=== PATIENT | male | born 1995 | race Caucasian/White ===

== ENCOUNTER 2023-03-01 20:51 | Emergency (ER) | payer OTHER ==
[2023-03-01 20:55] VITALS: BP 160/90; PULSE 104; RESP 20; TEMP 98.7; BMI 40.6
[2023-03-01] MEDS ORDERED: SIMETHICONE 80 MG TAB.CHEW (FP) PO ONE (21:20)
[2023-03-01] MEDS ORDERED: MAG HYDROX/AL HYDROX/SIMETH -MYLANTA- ORAL SUSPENSION PO ONE (21:21)
[2023-03-01] MEDS ORDERED: ACETAMINOPHEN 500 MG TABLET (FP) PO ONE (21:21)
[2023-03-01] MEDS ORDERED: FAMOTIDINE 10 MG TABLET PO ONE (21:21)
[2023-03-01] MEDS ORDERED: SODIUM CHLORIDE 0.9% 500 ML INFUS.BAG IV ONE (21:23)
[2023-03-01] MEDS ORDERED: ACETAMINOPHEN 1000 MG/100 ML BAG IVPB ONE (21:23)
[2023-03-01] MEDS ORDERED: FAMOTIDINE 20 MG/50 ML IVPB 20 MG/50 ML MG IVPB ONE (21:23)
[2023-03-01] MEDS ORDERED: MAG HYDROX/AL HYDROX/SIMETH 30 ML UNIT-DOSE CUP ONE (22:10)
[2023-03-01] MEDS ORDERED: FAMOTIDINE 10 MG/ML VIAL IVPB ONE (22:10)
[2023-03-01] MEDS ORDERED: SIMETHICONE 80 MG TAB.CHEW (FP) ONE (22:10)
[2023-03-01] MEDS ORDERED: ACETAMINOPHEN INJECTION 100 ML IVPB ONE (22:10)
[2023-03-01 22:27] LABS: BASO % 0.5 % (0-2.0); EOS % 2.1 % (0-4.5); LYMPH % 24.8 % (8-40); MCH 27.6 pg (25.7-33.7); MCHC 35.1 g/dl (32.0-35.9); MEAN CELL VOLUME 78.7 fl (80-96); MEAN PLT VOLUME 8.6 fl (7.5-11.1); MONO % 8.2 % (3.8-10.2); NEUT % 64.4 % (42.8-82.8); PLATELET COUNT 230 10^3/uL (134-434); RBC 5.08 M/mm3 (4.00-5.60); WHITE BLOOD COUNT 7.6 K/mm3 (4.0-10.0)
[2023-03-01 22:35] LABS: EPI CELLS 4 /uL (0-25.1); HYALINE CASTS 0 /uL (0-3.1); URINE APPEARANCE CLEAR; URINE BACTERIA 6 /uL (0-1359); URINE BILIRUBIN NEGATIVE (NEGATIVE); URINE COLOR YELLOW; URINE GLUCOSE (UA) 3+ (NEGATIVE); URINE KETONE 1+ (NEGATIVE); URINE LEUK ESTERASE NEGATIVE (NEGATIVE); URINE NITRITE NEGATIVE (NEGATIVE); URINE PROTEIN 1+ (NEGATIVE); URINE RBC 4 /uL (0-23.9); URINE WBC 3 /uL (0-25.8)
[2023-03-01 22:53] LABS: CALCIUM 8.4 mg/dL (8.5-10.1)
[2023-03-01 22:54] LABS: ALBUMIN 3.1 g/dl (3.4-5.0); BLOOD UREA NITROGEN 11.5 mg/dL (7-18)
[2023-03-01 22:57] LABS: CREATININE 0.9 mg/dL (0.55-1.3)
[2023-03-01 22:58] LABS: BILIRUBIN,TOTAL 0.4 mg/dL (0.2-1)
[2023-03-02] MEDS ORDERED: KETOROLAC TROMETHAMINE 15 MG/ML VIAL IVPUSH ONE (01:13)
[2023-03-02] MEDS ORDERED: AMPICILLIN NA/SULBACTAM NA 1.5 GM VIAL IM ONE (01:50)
[2023-03-02] MEDS ORDERED: KETOROLAC TROMETHAMINE 15 MG/ML VIAL ONE (02:08)
[2023-03-02] MEDS ORDERED: AMPICILLIN NA/SULBACTAM NA 1.5 GM VIAL ONE (02:08)
== END 2023-03-02 04:37 | disposition home or self-care (01) ==
LOC: JER 20:51
PROC: 3E033GC Introduction of Other Therapeutic Substance into Peripheral Vein, Percutaneous Approach (ICD-10-PCS; principal; 2023-03-01)
PROC: 3E033GC Introduction of Other Therapeutic Substance into Peripheral Vein, Percutaneous Approach (ICD-10-PCS; 2023-03-01)
PROC: 3E033GC Introduction of Other Therapeutic Substance into Peripheral Vein, Percutaneous Approach (ICD-10-PCS; 2023-03-02)
PROC: 3E0233Z Introduction of Anti-inflammatory into Muscle, Percutaneous Approach (ICD-10-PCS; 2023-03-02)
DX: K57.32 Diverticulitis of large intestine without perforation or abscess without bleeding (principal); E13.9 Other specified diabetes mellitus without complications; R10.13 Epigastric pain; R10.32 Left lower quadrant pain; Z20.822 Contact with and (suspected) exposure to COVID-19
CPT/HCPCS: 0241U-QW; 36415; 74177-TC; 80053; 81003; 83690; 83735; 85025; 87086; 87186; 93005; 93010; 99285-25